=== PATIENT | female | born 1930 | race Asian ===

== ENCOUNTER 2019-02-08 10:50 | Inpatient (IN) | payer MEDICARE, BC, MEDICAID ==
[2019-02-08 11:36] LABS: ADD MAN DIFF? NO
[2019-02-08 11:37] LABS: WHITE BLOOD COUNT 8.1 10^3/ul (4.8-10.8)
[2019-02-08 11:37] LABS: BASOPHILS % 0.1 % (0.0-2.0); EOSINOPHILS % 0.4 % (0.0-7.0); HEMATOCRIT 42.4 % (37.0-47.0); HEMOGLOBIN 13.8 g/dl (12.0-16.0); LYMPHOCYTES % 24.9 % (15.0-51.0); MEAN CORPUSCULAR HEMOGLOBIN 30.8 pg (29.0-33.0); MEAN CORPUSCULAR HGB CONC 32.5 g/dl (32.0-37.0); MEAN CORPUSCULAR VOLUME 94.6 fl (82.0-101.0); MEAN PLATELET VOLUME 9.3 fl (7.4-10.4); MONOCYTE # 0.6 10^3/ul (0.3-0.9); MONOCYTES % 6.9 % (0.0-11.0); NEUTROPHIL # 5.5 10^3/ul (1.6-7.5); NEUTROPHILS % 67.5 % (39.0-77.0); PLATELET COUNT 292 10^3/UL (140-415); RED BLOOD COUNT 4.48 10^6/ul (4.20-5.40); RED CELL DISTRIBUTION WIDTH 12.9 % (11.5-14.5)
[2019-02-08] MEDS: morphine 4 MG/ML VIAL IV (11:37)
[2019-02-08] MEDS: ONDANSETRON 4 MG INJ IV (11:37)
[2019-02-08] MEDS: SOD CHLORIDE 0.9% 1,000 ML IV (11:38)
[2019-02-08 11:55] LABS: ANION GAP 11 (5-13); BLOOD UREA NITROGEN 15 mg/dl (7-20); CALCIUM 9.7 mg/dl (8.4-10.2); CARBON DIOXIDE 26 mmol/L (21-31); CHLORIDE 104 mmol/L (97-110); CREATINE KINASE 40 IU/L (23-200); CREATININE 0.64 mg/dl (0.44-1.00); GLUCOSE 163 mg/dl (70-220); SODIUM 141 mmol/L (135-144)
[2019-02-08 12:00] LABS: INR 0.86; PROTIME 11.8 Sec (11.9-14.9); PT RATIO 0.9
[2019-02-08 12:01] LABS: PARTIAL THROMBOPLASTIN TIME 27.7 Sec (23.0-35.0)
[2019-02-08] MEDS ORDERED: ONDANSETRON 4 MG INJ IV ×2 (14:00)
[2019-02-08] MEDS ORDERED: MECLIZINE 25 MG TAB PO (14:00)
[2019-02-08] MEDS ORDERED: NACL 0.9% 3 ML SYG IV (14:00)
[2019-02-08] MEDS ORDERED: ACETAMINOPHEN 325 MG TAB PO ×2 (14:00)
[2019-02-08] MEDS: CREON (24K-76K-120K) 1 CAP PO ×2 (18:00→20:49)
[2019-02-08] MEDS: morphine 2 MG INJ IV (20:44)
[2019-02-08] MEDS: ATORVASTATIN 10 MG TAB PO (20:49)
[2019-02-08] MEDS: METOPROLOL 25 MG TAB PO (20:50)
[2019-02-08] MEDS: MELATONIN 5 MG TABLET PO (22:00)
[2019-02-09] MEDS: HYDROCODONE/APAP (5/325) TAB PO ×2 (00:17→10:21)
[2019-02-09 05:54] LABS: ADD MAN DIFF? NO; BASOPHILS % 0.2 % (0.0-2.0); EOSINOPHILS % 0.4 % (0.0-7.0); HEMATOCRIT 40.4 % (37.0-47.0); HEMOGLOBIN 13.2 g/dl (12.0-16.0); LYMPHOCYTES # 1.9 10^3/ul (0.8-2.9); LYMPHOCYTES % 22.9 % (15.0-51.0); MEAN CORPUSCULAR HEMOGLOBIN 31.1 pg (29.0-33.0); MEAN CORPUSCULAR HGB CONC 32.7 g/dl (32.0-37.0); MEAN CORPUSCULAR VOLUME 95.3 fl (82.0-101.0); MEAN PLATELET VOLUME 9.5 fl (7.4-10.4); MONOCYTE # 0.5 10^3/ul (0.3-0.9); NEUTROPHIL # 5.8 10^3/ul (1.6-7.5); NEUTROPHILS % 70.1 % (39.0-77.0); PLATELET COUNT 295 10^3/UL (140-415); RED BLOOD COUNT 4.24 10^6/ul (4.20-5.40); RED CELL DISTRIBUTION WIDTH 13.1 % (11.5-14.5)
[2019-02-09 05:54] LABS: WHITE BLOOD COUNT 8.3 10^3/ul (4.8-10.8)
[2019-02-09] MEDS: PANTOPRAZOLE (EC) 40 MG TAB PO (06:02)
[2019-02-09] MEDS: LEVOTHYROXINE 25 MCG TAB PO (06:02)
[2019-02-09 06:50] LABS: ALANINE AMINOTRANSFERASE 18 IU/L (13-69); ALBUMIN 3.8 g/dl (3.3-4.9); ALBUMIN/GLOBULIN RATIO 1.15; ALKALINE PHOSPHATASE 58 IU/L (42-121); ANION GAP 11 (5-13); ASPARTATE AMINO TRANSFERASE 34 IU/L (15-46); BILIRUBIN,INDIRECT 0.5 mg/dl (0-1.1); BILIRUBIN,TOTAL 0.5 mg/dl (0.2-1.3); BLOOD UREA NITROGEN 17 mg/dl (7-20); CALCIUM 9.1 mg/dl (8.4-10.2); CARBON DIOXIDE 26 mmol/L (21-31); CHLORIDE 105 mmol/L (97-110); CREATININE 0.69 mg/dl (0.44-1.00); GLUCOSE 125 mg/dl (70-220); MAGNESIUM 2.2 mg/dl (1.7-2.5); POTASSIUM 4.2 mmol/L (3.5-5.1); SODIUM 142 mmol/L (135-144); TOTAL PROTEIN 7.1 g/dl (6.1-8.1)
[2019-02-09] MEDS: DULOXETINE 30 MG CAP DR PO (08:37)
[2019-02-09] MEDS: FENOFIBRATE 145 MG TAB PO (08:37)
[2019-02-09] MEDS: CREON (24K-76K-120K) 1 CAP PO ×3 (08:37→18:27)
[2019-02-09] MEDS: LORATADINE 10 MG TAB PO (08:37)
[2019-02-09] MEDS: PREGABALIN 50 MG CAP PO (08:38)
[2019-02-09] MEDS: AMLODIPINE 5 MG TAB PO (08:38)
[2019-02-09] MEDS: METOPROLOL 25 MG TAB PO ×2 (08:38→20:31)
[2019-02-09] MEDS ORDERED: hydrALAzine 20 MG INJ IV (09:00)
[2019-02-09] MEDS ORDERED: METOPROLOL 25 MG TAB PO ×2 (09:00→21:00)
[2019-02-09] MEDS: ATORVASTATIN 10 MG TAB PO (20:30)
[2019-02-10 05:05] LABS: ADD MAN DIFF? NO
[2019-02-10 05:12] LABS: BASOPHILS % 0.4 % (0.0-2.0); EOSINOPHILS # 0.1 10^3/ul (0.0-0.5); EOSINOPHILS % 1.8 % (0.0-7.0); HEMATOCRIT 41.7 % (37.0-47.0); HEMOGLOBIN 13.5 g/dl (12.0-16.0); LYMPHOCYTES # 1.5 10^3/ul (0.8-2.9); LYMPHOCYTES % 20.9 % (15.0-51.0); MEAN CORPUSCULAR HEMOGLOBIN 30.8 pg (29.0-33.0); MEAN CORPUSCULAR HGB CONC 32.4 g/dl (32.0-37.0); MEAN PLATELET VOLUME 9.5 fl (7.4-10.4); MONOCYTE # 0.7 10^3/ul (0.3-0.9); MONOCYTES % 9.3 % (0.0-11.0); NEUTROPHIL # 4.8 10^3/ul (1.6-7.5); NEUTROPHILS % 67.2 % (39.0-77.0); PLATELET COUNT 302 10^3/UL (140-415); RED BLOOD COUNT 4.39 10^6/ul (4.20-5.40); RED CELL DISTRIBUTION WIDTH 13.2 % (11.5-14.5)
[2019-02-10 05:12] LABS: WHITE BLOOD COUNT 7.2 10^3/ul (4.8-10.8)
[2019-02-10 05:38] LABS: ANION GAP 8 (5-13); BLOOD UREA NITROGEN 28 mg/dl (7-20); CALCIUM 9.5 mg/dl (8.4-10.2); CARBON DIOXIDE 28 mmol/L (21-31); CHLORIDE 106 mmol/L (97-110); CREATININE 0.72 mg/dl (0.44-1.00); GLUCOSE 128 mg/dl (70-220); MAGNESIUM 2.1 mg/dl (1.7-2.5); PHOSPHORUS 4.2 mg/dl (2.5-4.9); POTASSIUM 4.4 mmol/L (3.5-5.1); SODIUM 142 mmol/L (135-144)
[2019-02-10] MEDS: LEVOTHYROXINE 25 MCG TAB PO (06:29)
[2019-02-10] MEDS: PANTOPRAZOLE (EC) 40 MG TAB PO (06:29)
[2019-02-10] MEDS: HYDROCODONE/APAP (5/325) TAB PO (06:31)
[2019-02-10] MEDS: PREGABALIN 50 MG CAP PO (08:46)
[2019-02-10] MEDS: AMLODIPINE 5 MG TAB PO (08:46)
[2019-02-10] MEDS: CREON (24K-76K-120K) 1 CAP PO ×3 (08:46→17:09)
[2019-02-10] MEDS: FENOFIBRATE 145 MG TAB PO (08:46)
[2019-02-10] MEDS: DULOXETINE 30 MG CAP DR PO (08:47)
[2019-02-10] MEDS: LORATADINE 10 MG TAB PO (08:47)
[2019-02-10] MEDS: METOPROLOL 25 MG TAB PO ×2 (08:47→20:06)
[2019-02-10] MEDS ORDERED: METHYLPREDNISOLONE 4 MG TAB PO (19:00)
[2019-02-10] MEDS: GABAPENTIN 300 MG CAP PO (20:07)
[2019-02-10] MEDS: ATORVASTATIN 10 MG TAB PO (20:07)
[2019-02-11 05:22] LABS: ADD MAN DIFF? NO
[2019-02-11 05:30] LABS: WHITE BLOOD COUNT 6.9 10^3/ul (4.8-10.8)
[2019-02-11 05:30] LABS: BASOPHILS % 0.4 % (0.0-2.0); EOSINOPHILS # 0.3 10^3/ul (0.0-0.5); EOSINOPHILS % 4.1 % (0.0-7.0); HEMATOCRIT 41.1 % (37.0-47.0); HEMOGLOBIN 13.1 g/dl (12.0-16.0); LYMPHOCYTES # 2.5 10^3/ul (0.8-2.9); LYMPHOCYTES % 36.2 % (15.0-51.0); MEAN CORPUSCULAR HEMOGLOBIN 30.5 pg (29.0-33.0); MEAN CORPUSCULAR HGB CONC 31.9 g/dl (32.0-37.0); MEAN CORPUSCULAR VOLUME 95.6 fl (82.0-101.0); MEAN PLATELET VOLUME 9.4 fl (7.4-10.4); MONOCYTE # 0.6 10^3/ul (0.3-0.9); MONOCYTES % 9.2 % (0.0-11.0); NEUTROPHIL # 3.4 10^3/ul (1.6-7.5); NEUTROPHILS % 49.8 % (39.0-77.0); PLATELET COUNT 316 10^3/UL (140-415)
[2019-02-11 06:15] LABS: ANION GAP 12 (5-13); BLOOD UREA NITROGEN 25 mg/dl (7-20); CALCIUM 8.8 mg/dl (8.4-10.2); CARBON DIOXIDE 28 mmol/L (21-31); CHLORIDE 104 mmol/L (97-110); CREATININE 0.81 mg/dl (0.44-1.00); GLUCOSE 118 mg/dl (70-220); MAGNESIUM 2.1 mg/dl (1.7-2.5); POTASSIUM 4.2 mmol/L (3.5-5.1); SODIUM 144 mmol/L (135-144)
[2019-02-11] MEDS: PANTOPRAZOLE (EC) 40 MG TAB PO (06:44)
[2019-02-11] MEDS: METHYLPREDNISOLONE 4 MG TAB PO (06:44)
[2019-02-11] MEDS: LEVOTHYROXINE 25 MCG TAB PO (06:44)
[2019-02-11] MEDS ORDERED: METHYLPREDNISOLONE 4 MG TAB PO ×4 (07:20→21:00)
[2019-02-11] MEDS ORDERED: METHYLPREDNISOLONE (MEDROL) DOSE PACK PO (09:00)
[2019-02-11] MEDS: CREON (24K-76K-120K) 1 CAP PO ×3 (09:08→18:01)
[2019-02-11] MEDS: PREGABALIN 50 MG CAP PO (09:08)
[2019-02-11] MEDS: FENOFIBRATE 145 MG TAB PO (09:08)
[2019-02-11] MEDS: DULOXETINE 30 MG CAP DR PO (09:08)
[2019-02-11] MEDS: GABAPENTIN 300 MG CAP PO ×3 (09:08→23:14)
[2019-02-11] MEDS: LORATADINE 10 MG TAB PO (09:08)
[2019-02-11] MEDS: METOPROLOL 25 MG TAB PO ×2 (09:09→23:13)
[2019-02-11] MEDS: AMLODIPINE 5 MG TAB PO (09:09)
[2019-02-11] MEDS: MAGNESIUM HYDROXIDE 30ML CUP PO (23:12)
[2019-02-11] MEDS: ATORVASTATIN 10 MG TAB PO (23:27)
[2019-02-12 05:19] LABS: ADD MAN DIFF? NO
[2019-02-12 05:29] LABS: BASOPHILS % 0.1 % (0.0-2.0); EOSINOPHILS % 0.3 % (0.0-7.0); HEMATOCRIT 41.6 % (37.0-47.0); HEMOGLOBIN 13.5 g/dl (12.0-16.0); LYMPHOCYTES # 2.9 10^3/ul (0.8-2.9); LYMPHOCYTES % 32.1 % (15.0-51.0); MEAN CORPUSCULAR HEMOGLOBIN 30.5 pg (29.0-33.0); MEAN CORPUSCULAR HGB CONC 32.5 g/dl (32.0-37.0); MEAN CORPUSCULAR VOLUME 94.1 fl (82.0-101.0); MEAN PLATELET VOLUME 9.5 fl (7.4-10.4); MONOCYTE # 0.7 10^3/ul (0.3-0.9); MONOCYTES % 7.2 % (0.0-11.0); NEUTROPHIL # 5.4 10^3/ul (1.6-7.5); NEUTROPHILS % 59.9 % (39.0-77.0); PLATELET COUNT 332 10^3/UL (140-415); RED BLOOD COUNT 4.42 10^6/ul (4.20-5.40); RED CELL DISTRIBUTION WIDTH 12.9 % (11.5-14.5)
[2019-02-12 05:50] LABS: ANION GAP 9 (5-13); BLOOD UREA NITROGEN 28 mg/dl (7-20); CALCIUM 8.9 mg/dl (8.4-10.2); CARBON DIOXIDE 28 mmol/L (21-31); CHLORIDE 106 mmol/L (97-110); CREATININE 0.68 mg/dl (0.44-1.00); GLUCOSE 118 mg/dl (70-220); MAGNESIUM 2.4 mg/dl (1.7-2.5); PHOSPHORUS 2.9 mg/dl (2.5-4.9); POTASSIUM 4.4 mmol/L (3.5-5.1); SODIUM 143 mmol/L (135-144)
[2019-02-12] MEDS: LEVOTHYROXINE 25 MCG TAB PO (06:30)
[2019-02-12] MEDS: PANTOPRAZOLE (EC) 40 MG TAB PO (06:30)
[2019-02-12] MEDS ORDERED: MAGNESIUM HYDROXIDE 30ML CUP PO (08:00)
[2019-02-12] MEDS: CREON (24K-76K-120K) 1 CAP PO ×2 (08:38→12:45)
[2019-02-12] MEDS: METHYLPREDNISOLONE 4 MG TAB PO ×2 (08:38→12:45)
[2019-02-12] MEDS: DULOXETINE 30 MG CAP DR PO (08:39)
[2019-02-12] MEDS: PREGABALIN 50 MG CAP PO (08:39)
[2019-02-12] MEDS: GABAPENTIN 300 MG CAP PO ×2 (08:39→12:45)
[2019-02-12] MEDS: AMLODIPINE 5 MG TAB PO (08:39)
[2019-02-12] MEDS: LORATADINE 10 MG TAB PO (08:39)
[2019-02-12] MEDS: FENOFIBRATE 145 MG TAB PO (08:39)
[2019-02-12] MEDS: METOPROLOL 25 MG TAB PO (08:40)
[2019-02-12] MEDS: HYDROCODONE/APAP (5/325) TAB PO (12:49)
[2019-02-12] MEDS ORDERED: METHYLPREDNISOLONE 4 MG TAB PO ×3 (18:55→21:00)
[2019-02-13] MEDS ORDERED: METHYLPREDNISOLONE 4 MG TAB PO (21:00)
== END 2019-02-12 15:18 | DRG 552 ==
LOC: E/R 10:50 → MS1 19:09
DX: S32.039A Unspecified fracture of third lumbar vertebra, initial encounter for closed fracture (principal); W06.XXXA Fall from bed, initial encounter; M48.07 Spinal stenosis, lumbosacral region; I10 Essential (primary) hypertension; E78.5 Hyperlipidemia, unspecified; K21.9 Gastro-esophageal reflux disease without esophagitis; E03.9 Hypothyroidism, unspecified
CPT/HCPCS: 36415; 70450; 72128; 72131; 72148; 80048; 80053; 82550; 83036; 83735; 84100; 85025; 85610; 85730; 96374; 96375; 97116; 97161; 97530; 99217; 99285-25